=== PATIENT | male | born 1995 | race Caucasian/White ===

== ENCOUNTER 2020-08-28 16:02 | Emergency (ER) | payer OTHER, SELFPAY ==
[2020-08-28 16:03] VITALS: BP 135/89; PULSE 78; RESP 16; TEMP 36.7; O2SAT 98; BMI 25.5
[2020-08-28 16:50] VITALS: BP 132/71; PULSE 76; RESP 18; TEMP 36.8; O2SAT 97
--- NOTE | 2020-08-28 16:55 | HMH.EDDENT ---
ED Disposition Clinical Impression: Foreign body in lip Qualifiers: Encounter type: initial encounter Qualified Code(s): S00.551A - Superficial foreign body of lip, initial encounter Disposition: Home, Self-Care Condition on Discharge: Good Instructions: DI for Removal of Foreign Body From Skin Prescriptions: Amoxicillin/Potassium Clav [Amox-Clav 875-125 mg Tablet] 1 tab PO BID #14 tab Prescription Printed Referrals: Provider,Referral, MD [Primary Care Provider] - - Critical Care Critical Care Time: No Attestation: On 08/28/20, the high probability of a clinically significant, sudden or life threatening deterioration of the following system(s) required my full and direct attention, intervention and personal management. The time I documented below is in addition to time spent performing reported procedures but includes the following listed in this critical care notation. Medical Decision Making - Medical Records Medical records reviewed: Yes: I reviewed the patient's medical records. - Govind Inquiry Pt receiving controlled substance: No Vital Signs: 08/28/20 16:03 Temperature 98.1 F Temperature Source Oral Pulse Rate [Right] 78 Respiratory Rate 16 Blood Pressure [Right Arm] 135/89 Blood Pressure Mean [Right Arm] 104 02 Sat by Pulse Oximetry 98 Oxygen Delivery Method Room Air - Reevaluation(s) Time: 16:57 Reevaluation #1: On reevaluation, patient tolerated procedure well. No evidence of active bleeding. The patient be placed on a short course antibiotics. Is instructed to not place any more piercings in the area. Patient is to follow-up with PCP in 48 hours. Given strict return precautions. Verbalized understanding. Medical Decision Narrative: 25-year-old male presented to the emergency department with piercing in his lower lip that is not removable. The back of the piercing appears to have been overgrown by skin. The patient will require foreign body removal. Dental HPI - General Chief complaint: Dental/Oral Stated complaint: embedded piercing of lip Time Seen by Provider: 08/28/20 16:10 Mode of Arrival: Ambulatory Limitations: No Limitations Description of Symptoms (Recalled from ER Triage Doc. by RN): c/o left lower lip piercing embedded inside inner lip x1 week. denies fevers, swelling. - History of Present Illness HPI Narrative: 25-year-old male presented to the emergency department with difficulty removing his lip piercing. The patient states that he had a lip piercing done few weeks ago. It got infected at the time and it grew over the back. The patient has been unable to remove the piercing secondary to skin growing over it. Denies any trauma to the area. Is not complaining of any pain. No fevers or chills. He has had issues with piercings before in the past. No difficulty breathing. No chest pain or shortness of breath. No headache or change in vision. No focal weakness. - Related Data Previous Rx's Medication Instructions Recorded Amoxicillin/Potassium Clav 1 tab PO BID #14 tab 08/28/20 [Amox-Clav 875-125 mg Tablet] Allergies Allergy/AdvReac Type Severity Reaction Status Date / Time No Known Allergies Allergy Verified 08/28/20 16:59 [facility] History - Hepatitis A Screen Drug use history?: No High risk sexual behaviors?: No History of sexually transmitted infection?: No Currently employed?: No Childcare worker?: No Do you have indoor plumbing?: Yes Do you have electricity?: Yes Attestation statement:: This patient has been screened for Hepatitis A risk factors. I have reviewed the patient's past medical history: Yes ROS Obtained: Yes All systems reviewed & no additional complaints - Constitutional Constitutional: Denies chills, Denies fever(s) - Eyes Eyes: Denies change in vision - ENT Ears, Nose, Mouth, and Throat: Reports other (lip piercing) - Cardiovascular Cardiovascular: Denies chest pain - Respiratory Respirat
== END 2020-08-28 17:04 | disposition home or self-care (01) ==
PROVIDERS: Emergency Provider Emergency Medicine
DX: S01.521A Laceration with foreign body of lip, initial encounter (principal)
CPT/HCPCS: 10121; 99282

== ENCOUNTER 2022-02-15 15:53 | Emergency (ER) | payer OTHER, SELFPAY ==
[2022-02-15 15:54] VITALS: BP 139/84; PULSE 103; RESP 16; TEMP 36.4; O2SAT 98; BMI 25.8
--- NOTE | 2022-02-15 17:05 | HMH.EDGENADL ---
Discharge Plan Disposition Patient Disposition: Home, Self-Care Condition: Good Chief Complaint: Nausea/Vomiting/Diarrhea Prescriptions Prescriptions: No Action omeprazole 10 mg capsule,delayed release(DR/EC) 10 mg PO DAILY quetiapine [Seroquel] 50 mg tablet See Rx Instructions .ROUTE .COMPLEX Qty: 60 4RF Rx Instructions: one or two about an hour before bed as needed for sleep; fluoxetine [Prozac] 20 mg capsule 20 mg PO DAILY Qty: 90 3RF Referrals Follow up/Referrals: Manuel Bermudez MD [Primary Care Provider] - See instructions Activity Restrictions/Add. Instructions Additional Instructions/Restrictions: Home medication as directed. Clear liquid diet for the next 24 hours, avoid spicy, greasy foods Clinical Impressions Clinical Impression: Vomiting, EE (eosinophilic esophagitis) Instructions Patient Instructions: DI for Diarrhea and Traveler's Diarrhea -- Adult, DI for Diarrhea and Traveler's Diarrhea -- Child, DI for Nausea -- Adult, DI for Nausea -- Child Discharge ED Provider: Scott Small General Adult HPI General Chief complaint: Nausea/Vomiting/Diarrhea Stated complaint: vomiting, diahrrea Time Seen by Provider: 02/15/22 16:35 Mode of Arrival: Ambulatory Source of Information: Patient Limitations: No Limitations Description of Symptoms (Recalled from ER Triage Doc. by RN): Pt reports diarrhea for 3-4 days. Pt reports this morning began vomiting, episodes x7. Reports emesis is brown/black in color. Pt reports he had esocentic esophagitis, reports he was told if he ever had black emesis he should be evaluated History of Present Illness HPI narrative: 27yo M with past medical history of depression and eosinophilic esophagitis presents the emergency department secondary to vomiting. Reports 7 or 8 episodes of emesis earlier this morning. Reports emesis was black and brown. Denies previous history of peptic ulcer disease but does take omeprazole for his eosinophilic esophagitis. No fever. Reports change in bowel habits and suspects he had a viral illness. Reports his belly feels mildly distended but is not tender. No fever. No known sick contact Related Data Home Medications Medication Instructions Recorded Confirmed omeprazole 10 mg capsule,delayed 10 mg PO DAILY 06/25/21 06/25/21 release Previous Rx's Medication Instructions Recorded fluoxetine 20 mg capsule (Prozac) 20 mg PO DAILY #90 caps 06/25/21 quetiapine 50 mg tablet (Seroquel) See Rx Instructions .Route 06/25/21 .COMPLEX #60 tabs Allergies Allergy/AdvReac Type Severity Reaction Status Date / Time No Known Allergies Allergy Verified 08/28/20 16:59 [facility] Disclaimer: The information contained in this section may have been updated after the patient was seen, as this information can be updated by other users. Medical History Esophagitis Social History Smoking Status: Never smoker alcohol intake: current current occupational status: unemployed Travel in the last 8 weeks: None ROS Obtained: Yes Systems reviewed as appropriate & no additional complaints except as documented Physical Exam General General appearance: alert, in no apparent distress and in distress Head Head exam: atraumatic Eye Eye exam: Present normal appearance Neck Neck exam: Present trachea midline Chest Chest inspection: Present symmetric chest wall rise Respiratory Respiratory exam: Present normal lung sounds bilaterally; Absent respiratory distress, wheezes or stridor Cardiovascular Cardiovascular exam: Present regular rate, normal rhythm and normal heart sounds Abdominal Exam Abdominal exam: Present soft and normal bowel sounds; Absent distention, tenderness, guarding, rebound or rigidity Extremities Exam Extremities exam: Present normal capillary refill Neurological Exam Neurological exam: Presen
--- NOTE | 2022-02-15 17:19 | XR_ITS ---
PROCEDURE INFORMATION: Exam: XR Complete Acute Abdomen Series Including Chest Exam date and time: 02/15/2022 5:26 PM Age: 27 years old Clinical indication: Vomiting and other: Diarrhea about 4 days, vomiting; Additional info: Distention, h/o eosinophilic esophagitis TECHNIQUE: Imaging protocol: Radiologic exam. Complete acute abdomen series, including 2 or more views of the abdomen and a single view chest. COMPARISON: No relevant prior studies available. FINDINGS: Lungs: Normal. No consolidation. Pleural spaces: Normal. No pleural effusions. No pneumothorax. Heart/Mediastinum: Normal. No cardiomegaly. Gastrointestinal tract: The colon volume is small to moderate and has a few non-specific fluid levels. No abnormal small bowel dilatation or free air. Intraperitoneal space: A 1.5 cm calcific density is superimposed upon the right upper quadrant. No other abnormal calcifications or soft tissue masses. Bones/joints: Normal. No acute fracture. Soft tissues: Normal. IMPRESSION: 1. Calcific density superimposed upon the right upper abdomen might be an ingested medication but a gallstone is a consideration. Right upper quadrant ultrasound may be useful for further characterization if clinically warranted. 2. Nonobstructive intestinal gas pattern. 3. No other acute abnormalities in the abdomen and chest.
[2022-02-15 17:30] VITALS: BP 137/87; PULSE 98; RESP 16; O2SAT 97
--- NOTE | 2022-02-15 17:34 | PC.NURSE ---
pt to xray
[2022-02-15 18:00] VITALS: BP 114/84; PULSE 106; RESP 22; O2SAT 98
[2022-02-15 18:45] VITALS: BP 114/84; PULSE 106; RESP 17; TEMP 36.4; O2SAT 98
== END 2022-02-15 18:45 | disposition home or self-care (01) ==
PROVIDERS: Emergency Provider Family Medicine; PCP Family Medicine
DX: K20.0 Eosinophilic esophagitis (principal); R11.2 Nausea with vomiting, unspecified; F32.A Depression, unspecified
CPT/HCPCS: 74021; 99283; 99284